=== PATIENT | female | born 1955 | race Caucasian/White ===

== ENCOUNTER → 2017-04-06 | Outpatient (CLI) | payer BC ==
[~2017-04-06] MED LIST: GADAVIST IV PRN
--- NOTE | 2017-04-06 22:00 | DIAGNOSTIC IMAGING REPORT ---
LEFT FOREFOOT MRI HISTORY: Left foot pain. Skin ulcer. TECHNIQUE: Multiplanar multisequence MRI of the left forefoot was performed both before and after the intravenous administration of contrast. COMPARISON STUDY: None. FINDINGS: There is a skin marker along the plantar surface of the first toe corresponding to the patient's reported skin ulcer. There is mild atrophy and hypointense signal at this location on the plantar surface of the first toe suggestive of scarring. No underlying signal abnormality within the bone marrow to suggest osteomyelitis. Focal areas of subchondral cystic change at the first MTP joint and within the third tarsometatarsal joint consistent with degenerative change. No bony destruction identified within the first toe. Dorsal subcutaneous edema within the forefoot and subcutaneous edema within the ankle. No fracture or dislocation within the forefoot. The flexor and extensor tendons appear intact. Tiny cystic focus within the subcutaneous soft tissues of the first toe on the plantar surface may represent a small vessel. This is of doubtful clinical significance. Anterior to the ankle there is focal area of thickened tibialis anterior tendon which appears to be completely torn and slightly retracted. This is best seen on coronal image 5 of 38. IMPRESSION: 1. No bony abnormality to suggest osteomyelitis within the forefoot. Specifically, the bones of the first toe demonstrate a normal signal intensity. 2. Mild atrophy and hypointense signal within the subcutaneous soft tissues along the plantar surface of the first toe suggestive of scarring. 3. Focal thickening and a completely torn tibialis anterior tendon which is slightly retracted. Electronically signed by: Khoa Estrada M.D. 04/06/2017 10:12 PM Dictated Date/Time: 04/06/2017 9:51 PM
== END | disposition home or self-care (01) ==
LOC: C.MRI 19:46
PROVIDERS: ATTEND Podiatrist Foot & Ankle Surgery
DX: M20.12 Hallux valgus (acquired), left foot (principal); L97.521 Non-pressure chronic ulcer of other part of left foot limited to breakdown of skin

== ENCOUNTER → 2017-10-02 | Outpatient (CLI) | payer BC ==
[~2017-10-02] MED LIST changes: +AMLO-110 PO; +ASPI325T39 PO; -GADAVIST IV PRN; +OPTIRAY 320 IV PRN; +VALS-10 PO
--- NOTE | 2017-10-02 18:40 | DIAGNOSTIC IMAGING REPORT ---
ANGIO AA ALESSANDRA LE RUNOFF CLINICAL HISTORY: 62 years-old Female presenting with peripheral arterial disease. TECHNIQUE: Multidetector CT angiography of the abdomen and pelvis was performed after the administration of intravenous contrast. 3-D volumetric and/or maximum intensity projection (MIP) images were subsequently reconstructed for review. IV contrast: 115 mL of Optiray 320. A dose lowering technique was used consistent with the principles of ALARA (as low as reasonably achievable). Stenosis measurements were based on NASCET-like criteria. COMPARISON: None. CT DOSE (mGy.cm): The estimated cumulative dose is 1893.01 mGy.cm. FINDINGS: [employer] topogram: Unremarkable. Vasculature: Atherosclerosis of the normal caliber abdominal aorta. . Celiac, superior mesenteric, bilateral single renal, and inferior mesenteric arteries widely patent at their origins along their courses. Bilateral common, internal, and external iliac arteries widely patent. Common, superficial, femoral arteries patent. Bilateral popliteal arteries patent. Anterior and posterior tibial and peroneal arteries patent in the bilateral lower legs. Dorsalis pedis arteries patent bilaterally. Remaining abdomen and pelvis: Lung bases: Mosaic attenuation may suggest small airways disease. Mild bronchial wall thickening. Normal heart size. Coronary artery calcification. No pericardial or pleural effusion. Liver: Normal morphology. No focal lesion allowing for the phase of contrast. Conventional hepatic arterial anatomy. Biliary: No intrahepatic or extrahepatic biliary ductal dilatation. Normal gallbladder. Pancreas: Normal. Spleen: Normal. Adrenal glands: Normal. Kidneys and ureters: Normal. No hydronephrosis. Bladder: Incompletely evaluated secondary to underdistention. Pelvic organs: Uterus surgically absent. No adnexal mass. Bowel: Normal. No bowel obstruction. Peritoneal cavity: No free fluid or intraperitoneal gas. Lymph nodes: No enlarged lymph nodes in the abdomen or pelvis. Abdominal wall: Normal. Few prominent venous varicosities in the lower extremities. Cutaneous edema in the infrapatellar regions bilaterally. Asymmetric skin thickening and subcutaneous infiltration in the anteromedial left lower leg immediately distal to the knee joint. There is evidence of fat necrosis in this region. Musculoskeletal: Tricompartmental degenerative changes at the joints. Degenerative changes at the pubic symphysis, sacroiliac joints, and spine. IMPRESSION: 1. Atherosclerosis without significant narrowing of the abdominal aorta or the major branch vessels including in the bilateral lower extremities. 2. Evidence of skin thickening with subcutaneous infiltration and fat necrosis at the anterior medial left lower leg immediately distal to the knee joint. This may represent posttraumatic changes. Correlate with a history of trauma. Electronically signed by: Johnathan Lacey M.D. 10/02/2017 6:39 PM Dictated Date/Time: 10/02/2017 6:28 PM
== END | disposition home or self-care (01) ==
LOC: C.CTS 17:42
PROVIDERS: ATTEND Internal Medicine Interventional Cardiology
DX: I73.9 Peripheral vascular disease, unspecified (principal); I70.0 Atherosclerosis of aorta